=== PATIENT | female | born 1995 | race Hispanic/Latino ===

== ENCOUNTER 2022-06-01 06:00 | Inpatient (IN) | payer OTHER ==
[2022-06-01] MEDS ORDERED: Methylergonovine 0.2 MG/ML VIAL IM PRN ×2 (06:45→23:37)
[2022-06-01] MEDS ORDERED: Promethazine HCl 25 MG/ML VIAL IM PRN ×3 (06:45→23:37)
[2022-06-01] MEDS ORDERED: Misoprostol 200 MCG TAB RC PRN (06:45)
[2022-06-01] MEDS ORDERED: Ondansetron PF 4 MG/2 ML Vial IVP PRN ×3 (06:45→23:37)
[2022-06-01] MEDS ORDERED: Carboprost 250 MCG/ML AMP IM PRN (06:45)
[2022-06-01] MEDS ORDERED: Butorphanol Tartrate 1 MG/ML VIAL SLOW IVP PRN (06:45)
[2022-06-01] MEDS ORDERED: Penicillin G Potassium 5 MILL.UNITS in Sodium Chloride 0.9% 100 ML IVPB SCH (06:45)
[2022-06-01] MEDS ORDERED: NS w/ Oxytocin 30 units 500 ML IVPB SCH (06:45)
[2022-06-01] MEDS ORDERED: Lidocaine 1% (PF) 30 ML VIAL SC PRN (06:45)
[2022-06-01] MEDS ORDERED: NS w/ Oxytocin 30 units 500 ML IV SCH ×2 (06:45→23:37)
[2022-06-01] MEDS ORDERED: hydrALAZINE 20 MG/ML VIAL SLOW IVP PRN ×2 (06:45→23:37)
[2022-06-01 07:08] VITALS: BMI 35.5
[2022-06-01] MEDS ORDERED: Bupivacaine 0.25% HCL 30 ML VIAL ONE (08:00)
[2022-06-01 08:04] LABS: Hemoglobin 11.7 g/dL (12.0-15.5); Mean Corpuscular HGB CONC 34.4 g/dL (32.0-36.0); Mean Corpuscular Hemoglobin 30.7 pg (27.0-33.0); Mean Corpuscular Volume 89.2 fl (81.6-98.3); Mean Platelet Volume 12.4 fl (7.4-10.4); Platelet Count 233 10x3/uL (150-450); RBC Distribution Width 13.2 % (11.5-14.5); Red Blood Cell (RBC) Count 3.81 10x6/uL (3.90-5.03)
[2022-06-01 08:31] LABS: SARS-CoV-2 NAA Rapid Test Not Detected (NotDetected)
[2022-06-01 09:05] LABS: Syphilis Antibody Nonreactive (Nonreactive); Syphilis Antibody Index 0.04 S/CO (<1.00 Non-Reactive)
[2022-06-01 09:06] LABS: HBSAg Index 0.15 S/CO (0-0.99); Hep B Surf Ag Non-Reactive S/CO (NonReactive)
[2022-06-01] MEDS: PENICILLIN G IVPB SCH ×4 (12:31→23:54)
[2022-06-01] MEDS ORDERED: Fentanyl 2 mcg/Bup 0.1% Cadd 100 ML ONE (13:18)
[2022-06-01] MEDS ORDERED: diphenhydrAMINE 50 MG/ML VIAL IVP PRN (14:11)
[2022-06-01] MEDS ORDERED: Lactated Ringer's 500 ML IV PRN (14:11)
[2022-06-01] MEDS ORDERED: ePHEDrine Sulfate 50 MG/10 ML VIAL SLOW IVP PRN (14:11)
[2022-06-01] MEDS ORDERED: Moisturizing Cream (Eucerin) 113 GM JAR TOP PRN (14:11)
[2022-06-01] MEDS ORDERED: Acetaminophen 325 MG TAB PO PRN (14:11)
[2022-06-01] MEDS ORDERED: Naloxone HCl 0.4 mg/ml Vial IVP PRN ×2 (14:11)
[2022-06-01] MEDS ORDERED: Fentanyl 2 mcg/Bupivacaine 0.1% Cassette 100 ML EPIDURAL SCH (14:15)
[2022-06-01] MEDS ORDERED: Communication Order-Pharmacy FS SCH (14:15)
[2022-06-01] MEDS: Lactated Ringer's 1,000 ML IV SCH ×2 (20:01→23:11)
[2022-06-01] MEDS ORDERED: Varicella virus, LIVE 0.5 ML VIAL SC ONE (23:37)
[2022-06-01] MEDS ORDERED: diphenhydrAMINE 25 MG CAP PO PRN (23:37)
[2022-06-01] MEDS ORDERED: Measles/Mumps/Rubella 10 MCG/0.5 ML VIAL SC ONE (23:37)
[2022-06-01] MEDS ORDERED: Benzocaine-Menthol 82.5 ML CAN TOP PRN (23:37)
[2022-06-01] MEDS ORDERED: Zolpidem Tartrate 5 MG TAB PO PRN (23:37)
[2022-06-01] MEDS ORDERED: HYDROcodone/Acetaminophen 5/325 mg Tablet PO PRN ×2 (23:37)
[2022-06-01] MEDS ORDERED: Lanolin Ointment 7 GM TUBE TOP PRN (23:37)
[2022-06-01] MEDS ORDERED: Milk Of Magnesia 30 ML UDCUP PO PRN (23:37)
[2022-06-01] MEDS ORDERED: Misoprostol 200 MCG TAB VAG PRN (23:37)
[2022-06-01] MEDS ORDERED: Boostrix 0.5 ML (Tdap) VIAL (>/=7 yrs of age) IM ONE (23:37)
[2022-06-01] MEDS ORDERED: Bisacodyl 10 MG SUPP PR PRN (23:37)
[2022-06-01] MEDS ORDERED: Preparation H Ointment 28 GM TUBE PR PRN (23:37)
[2022-06-01] MEDS: Ibuprofen 800 MG TAB PO SCH (23:57)
[2022-06-02 05:53] LABS: Mean Corpuscular HGB CONC 34.5 g/dL (32.0-36.0); Mean Corpuscular Hemoglobin 31.3 pg (27.0-33.0); Mean Corpuscular Volume 90.6 fl (81.6-98.3); Mean Platelet Volume 12.3 fl (7.4-10.4); Platelet Count 238 10x3/uL (150-450); RBC Distribution Width 13.2 % (11.5-14.5); White Blood Cell (WBC) Count 24.5 10x3/uL (3.5-10.5)
[2022-06-02] MEDS ORDERED: Ibuprofen 800 MG TAB PO SCH (06:00)
[2022-06-02] MEDS ORDERED: Acetaminophen 500 MG TAB PO PRN (08:23)
[2022-06-02] MEDS: Ferrous Sulfate 325 MG TAB PO SCH ×2 (08:32→17:26)
[2022-06-02] MEDS: Docusate 100 MG CAP PO SCH ×2 (08:32→21:26)
[2022-06-02] MEDS: Prenatal Vitamin 1 TAB PO SCH (08:33)
[2022-06-02] MEDS ORDERED: ePHEDrine Sulfate 50 MG/10 ML VIAL SLOW IVP PRN (09:42)
[2022-06-02] MEDS ORDERED: Ondansetron PF 4 MG/2 ML Vial IVP PRN (09:42)
[2022-06-02] MEDS ORDERED: Naloxone HCl 0.4 mg/ml Vial IVP PRN ×2 (09:42)
[2022-06-02] MEDS ORDERED: Promethazine HCl 25 MG/ML VIAL IM PRN (09:42)
[2022-06-02] MEDS ORDERED: Moisturizing Cream (Eucerin) 113 GM JAR TOP PRN (09:42)
[2022-06-02] MEDS ORDERED: diphenhydrAMINE 50 MG/ML VIAL IVP PRN (09:42)
[2022-06-02] MEDS ORDERED: Lactated Ringer's 500 ML IV PRN (09:42)
[2022-06-02] MEDS ORDERED: Communication Order-Pharmacy FS SCH (09:45)
[2022-06-02] MEDS ORDERED: Fentanyl 2 mcg/Bupivacaine 0.1% Cassette 100 ML EPIDURAL SCH (09:45)
[2022-06-02] MEDS: Ibuprofen 800 MG TAB PO SCH ×2 (10:45→15:37)
[2022-06-02] MEDS ORDERED: Calcium Carbonate 500 MG ChewTAB PO PRN (11:20)
[2022-06-02] MEDS: Acetaminophen 325 MG TAB PO PRN ×2 (16:13→23:19)
[2022-06-03] MEDS: Ibuprofen 800 MG TAB PO SCH ×2 (00:10→09:29)
[2022-06-03] MEDS: Acetaminophen 325 MG TAB PO PRN (05:40)
[2022-06-03 07:55] VITALS: BP 103/52; TEMP 97.9
[2022-06-03] MEDS: Prenatal Vitamin 1 TAB PO SCH (09:29)
[2022-06-03] MEDS: Docusate 100 MG CAP PO SCH (09:29)
[2022-06-03] MEDS: Ferrous Sulfate 325 MG TAB PO SCH (09:35)
== END 2022-06-03 14:13 | disposition home or self-care (01) | DRG 807 ==
LOC: CSHLD 06:00 → CSHPP 06-02 01:05
PROVIDERS: ADMIT Obstetrics & Gynecology; ATTEND Obstetrics & Gynecology
PROC: 10E0XZZ Delivery of Products of Conception, External Approach (ICD-10-PCS; principal; 2022-06-01)
DX: O71.82 Other specified trauma to perineum and vulva (principal); Z37.0 Single live birth; Z20.822 Contact with and (suspected) exposure to COVID-19; Z3A.39 39 weeks gestation of pregnancy
CPT/HCPCS: 36415; 51702; 85027; 86780; 86850; 86900; 86901; 87340; J2405; J2540; J2590; J3490; S0020; U0002